=== PATIENT | female | born 1950 | race Caucasian/White ===

== ENCOUNTER 2018-09-30 14:20 | Outpatient (CLI) | payer MEDICARE, SELFPAY ==
[2018-09-30 16:16] LABS: ALT 27 U/L (12-78); AST 31 U/L (15-37); Albumin 3.4 g/dL (3.4-5.0); Alkaline Phosphatase 98 U/L (46-116); Anion Gap 9.9 mmol/L (3-11); BUN 45 mg/dL (7-18); Bilirubin, Total 0.4 mg/dL (0.2-1.0); CO2 27.1 mmol/L (21.0-32.0); CREATININE 1.49 mg/dL (0.55-1.02); Calcium 8.7 mg/dL (8.5-10.1); Chloride 106 mmol/L (98-107); Cholesterol 208 mg/dL (50-200); Glucose 137 mg/dL (70-100); HDL Cholesterol 37 mg/dL (40-60); LDL CHOLESTEROL 148 mg/dL (<100); Magnesium 1.9 mg/dL (1.8-2.4); Potassium 3.7 mmol/L (3.5-5.1); Sodium 143 mmol/L (136-145); Total Protein 7.5 g/dL (6.4-8.2); Triglyceride 240 mg/dL (30-150)
== END 2018-09-30 14:40 ==
PROVIDERS: PCP Family Medicine; Visit Provider Family Medicine
DX: I10 Essential (primary) hypertension (principal); E83.42 Hypomagnesemia; E03.9 Hypothyroidism, unspecified; E78.5 Hyperlipidemia, unspecified
CPT/HCPCS: 36415; 80053; 80061; 83721; 83735; 84443

== ENCOUNTER 2019-05-27 09:20 | Outpatient (CLI) | payer MEDICARE, SELFPAY ==
[2019-05-27 10:53] LABS: Abs Immature Grans 0.02 k/cumm (0.0-0.09); Absolute Basophil Count 0.04 k/cumm (0.0-0.2); Absolute Eosinophil Count 0.25 k/cumm (0.0-0.7); Absolute Lymphocyte Count 1.18 k/cumm (1.2-3.4); Absolute Monocyte Count 0.48 k/cumm (0.11-0.7); Absolute Neutrophil Count 4.94 k/cumm (1.2-6.7); Basophils % 0.6; Eosinophils % 3.6; HCT 31.3 % (36.0-46.0); HGB 9.8 g/dL (12.0-15.5); Immature Grans % 0.3; Lymphocytes % 17.1; Mean Corp. HGB Concentration 31.3 g/dL (32.0-36.0); Mean Corpuscular Hemoglobin 20.2 pg (27.0-33.0); Mean Corpuscular Volume 64.7 fL (80-95); Monocytes % 6.9; Neutrophils % 71.5; Platelet Count 210 x1000/uL (130-400); RBC 4.84 m/cumm (4.00-5.20); RBC Distribution Width 16.6 % (11.7-14.6); White Blood Cell Count 6.91 k/cumm (4.4-10.8)
[2019-05-27 11:56] LABS: ALT 23 U/L (12-78); AST 28 U/L (15-37); Albumin 3.4 g/dL (3.4-5.0); Alkaline Phosphatase 111 U/L (46-116); Anion Gap 13.7 mmol/L (3-11); BUN 43 mg/dL (7-18); Bilirubin, Total 0.5 mg/dL (0.2-1.0); C-Reactive Protein 0.43 mg/dL (0.0-0.3); CO2 23.3 mmol/L (21.0-32.0); CREATININE 1.65 mg/dL (0.55-1.02); Calcium 8.7 mg/dL (8.5-10.1); Chloride 107 mmol/L (98-107); Estimated GFR 30.75 (mL/min/1.73m2); Glucose 123 mg/dL (70-100); Potassium 3.4 mmol/L (3.5-5.1); Sodium 144 mmol/L (136-145); TSH 1.43 uIU/mL (0.358-3.74); Total Protein 7.3 g/dL (6.4-8.2)
[2019-05-27 11:59] LABS: Diff Comment RBC Morph Reviewed; Hypochromasia 2+
[2019-05-27 12:00] LABS: Microcytosis 3+
[2019-05-27 12:02] LABS: ESR 43 MM/HR (0-30)
[2019-05-27 12:33] LABS: Vitamin B12 420 pg/mL (193-986)
[2019-05-28 11:10] LABS: Lyme Ab w Rflx to Lyme Confirm Negative
== END 2019-05-27 09:40 ==
PROVIDERS: PCP Family Medicine; Visit Provider Family Medicine
DX: I10 Essential (primary) hypertension (principal); D56.3 Thalassemia minor; M25.50 Pain in unspecified joint; E53.8 Deficiency of other specified B group vitamins; E03.9 Hypothyroidism, unspecified; W57.XXXA Bitten or stung by nonvenomous insect and other nonvenomous arthropods, initial encounter; T14.8XXA Other injury of unspecified body region, initial encounter
CPT/HCPCS: 36415; 80053; 85652; 82607; 84443; 85025; 86140; 86618